=== PATIENT | male | born 1945 | race Caucasian/White ===

== ENCOUNTER 2024-08-27 09:03 | Outpatient (AMB) | payer MEDICARE, SELFPAY ==
--- NOTE | 2024-08-27 09:15 | A.SPINEOV_ITS ---
Vital Signs 08/27/24 09:26 Height 5 ft 7 in Weight 163 lb BMI 25.5 Intake Visit Reasons: Neck pain Intake Note: Mr. Rg is here today c/o Neck Discomfort that radiates down to the arms. Stitchdown Toe Former Required: No Allergies chlorthalidone Allergy (Unknown, Verified 08/27/24 09:27) no affect Physical Exam Vital Signs: BMI result Body Mass Index 25.5 Assessment & Plan Assessment & Plan (1) Status post cervical spinal fusion: Code(s): Z98.1 - Arthrodesis status Category: Medical Plan Dear colleague Thank you for referring Doyle Rg to the office today with a chief complaint of neck pain. HPI: This 78-year-old male underwent a 3 level anterior diskectomy and fusion from C4-C7 with spinal cord compression 11 years ago at [facility]. He comes to see me with a complaint of progressive right neck pain and intermittent numbness in predominantly his left hand. He denies radiating pain down his arms. He also has dysphagia as a result of the surgery. He has been diagnosed with a traction esophageal diverticulum and was told that removal of an anterior plate would be risky. He wants to know if any form of posterior decompression would help his pain or numbness. The following conservative treatment options were tried without success antiinflammatories, tylenol, physician guided home exercise plan, cortisone shots Physical Exam: Pleasant male. His range of motion of the cervical spine is limited towards the right side and with extension. Spurling test produces no pain down the arms. There is atrophy of the thenar region on the left side and bilateral Sharonda reflexes. No motor deficits. Gait is undisturbed. Radiological Studies: MRI of the cervical spine shows status post C4-C7 anterior diskectomy and fusion. There is a solid fusion. 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 There is multilevel foraminal stenosis. No active spinal cord compression Impression/Plan: I explained to the patient that limitations in his range of motion is a direct result from the 3 level fusion. 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 The sensory deficits are intermittent. More importantly, there is no active radiculopathy. Therefore, I do not see an indication for surgery. I recommended to return to my clinic if he develops radicular symptoms. Thank you for allowing me to participate in your patients care. total time spent was 50 minutes in counseling ,coordination of plan, personal review of imaging, surgical decision making and subsequent plan Moisés Lopez MD, PhD Sp[facility] Trained Neurosurgeon Director, [facility] Coding Level of Care Code New Pt Level 4 (45045) Diagnoses Status post cervical spinal fusion Z98.1
[2024-08-27 09:26] VITALS: BMI 25.5
== END 2024-08-27 10:22 | disposition home or self-care (01) ==
LOC: HO.HNS 09:04
PROVIDERS: Visit Provider Neurological Surgery
DX: Z98.1 Arthrodesis status (principal)
CPT/HCPCS: 99204

== ENCOUNTER → 2024-08-27 09:03 | Outpatient (BNVA) | payer MEDICARE, SELFPAY | PROVIDERS: Visit Provider Neurological Surgery | DX: Z98.1 Arthrodesis status (principal) | CPT/HCPCS: 99202 ==